=== PATIENT | female | born 1960 | race Caucasian/White ===

== ENCOUNTER → 2018-05-12 | Outpatient (CLI) | payer BC ==
--- NOTE | 2018-05-13 09:53 | MM ---
Reason for exam: screening (asymptomatic). Last mammogram was performed 2 years and 7 months ago. History: Patient is postmenopausal. Took hormonal contraceptives for 15 years beginning at age 19. Physical Findings: A clinical breast exam by your physician is recommended on an annual basis and results should be correlated with mammographic findings. MG 3D Screening Mammo W/Cad Bilateral CC and MLO view(s) were taken. Prior study comparison: October 07, 2015, bilateral MG screening mammo w CAD. October 27, 2012, bilateral digital screening mammo w/CAD. The breast tissue is extremely dense which could obscure a lesion on mammography. Benign appearing bilateral calcifications. No significant changes when compared with prior studies. ASSESSMENT: Benign, BI-RAD 2 RECOMMENDATION: Routine screening mammogram of both breasts in 1 year.
== END | disposition home or self-care (01) ==
LOC: RADMAMWWP 10:45
PROVIDERS: ATTEND Obstetrics & Gynecology
DX: Z12.31 Encounter for screening mammogram for malignant neoplasm of breast (principal)
CPT/HCPCS: 77063; 77067

== ENCOUNTER → 2019-10-01 | Outpatient (CLI) | payer BC ==
--- NOTE | 2019-10-02 13:55 | MM ---
Reason for exam: screening (asymptomatic). Last mammogram was performed 1 year and 5 months ago. History: Patient is postmenopausal. Took hormonal contraceptives for 15 years beginning at age 19. Physical Findings: A clinical breast exam by your physician is recommended on an annual basis and results should be correlated with mammographic findings. MG 3D Screening Mammo W/Cad Bilateral CC and MLO view(s) were taken. Prior study comparison: May 12, 2018, bilateral MG 3d screening mammo w/cad. October 07, 2015, bilateral MG screening mammo w CAD. The breast tissue is extremely dense which could obscure a lesion on mammography. No significant changes when compared with prior studies. ASSESSMENT: Benign, BI-RAD 2 RECOMMENDATION: Routine screening mammogram of both breasts in 1 year.
== END | disposition home or self-care (01) ==
LOC: RADMAMWWP 15:26
PROVIDERS: ATTEND Physician Assistant
DX: Z12.31 Encounter for screening mammogram for malignant neoplasm of breast (principal)
CPT/HCPCS: 77063; 77067

== ENCOUNTER → 2019-10-01 | Outpatient (CLI) | payer BC ==
--- NOTE | 2019-10-01 16:06 | US ---
EXAMINATION TYPE: US axilla LT DATE OF EXAM: 10/01/2019 COMPARISON: NONE CLINICAL HISTORY: 58-year-old female R22.30 Localized swelling, mass and lump, unspec. TECHNIQUE: Multiple sonographic images of the left axilla including the upper third posterior arm cor responding to the palpable site. FINDINGS: Left posterior humerus upper 1/3 area palpable. Echogenic focal round lesion non vascular measuring 0 .6 x 0.5 x 0.7 cm IMPRESSION: Targeted scanning to the palpable site along the posterior upper left arm shows a 7 mm round echogeni c lesion in the subcutaneous adipose. Probable small hematoma or area of fat necrosis. Three-month fo llow-up recommended to reassess.
== END | disposition home or self-care (01) ==
LOC: RADUSWWP 15:16
PROVIDERS: ATTEND Physician Assistant
DX: L98.8 Other specified disorders of the skin and subcutaneous tissue (principal)

== ENCOUNTER → 2020-01-21 | Outpatient (CLI) | payer BC ==
--- NOTE | 2020-01-22 05:18 | US ---
EXAMINATION TYPE: US axilla LT DATE OF EXAM: 01/21/2020 COMPARISON: 10/01/2019 CLINICAL HISTORY: 59-year-old female R22.30 Lump in Armpit. Financial Agent notes: F/U lump left posterio r upper arm, pt states palpable still present and feels unchanged from previous Technique: Targeted ultrasound examination at the patient's palpable site along the upper posterior l eft arm near the axilla. FINDINGS: Area of palpable left upper posterior arm visualized and appears unchanged from previous- focal ech ogenic round area just deep to the skin surface within the subcutaneous adipose layer, 8mm in size IMPRESSION: Stable 8 mm echogenic lesion just deep to the skin surface within the subcutaneous adipos e layer corresponding to the palpable site. Possible area of fat necrosis or small subcutaneous lipom a. If any growth is noted, the area can be rescanned. If symptomatic, excision could be considered.
== END | disposition home or self-care (01) ==
LOC: RADUSWWP 15:21
PROVIDERS: ATTEND Nurse Practitioner Family
DX: R22.30 Localized swelling, mass and lump, unspecified upper limb (principal)

== ENCOUNTER → 2022-09-21 | Outpatient (CLI) | payer BC ==
--- NOTE | 2022-09-21 13:50 | CA ---
Exercise Stress Test Report Name: Gely Da Silva Exam Date: 09/21/2022 11:05 Exam Location: [place] [facility] Ht (in): 65 Wt (lb): 210 BSA: 2.02 Ordering Phys: LICO Referring Phys: BARFIELD Technologist: Jeffry Rodney Age: 61 Gender: F : 1960 Procedure CPT: Indications: ICD-10 Codes: Patient History: PALPITATIONS, HTN, FAMILY HX OF HEART DISEASE, ABN ECG Medications: LISINOPRIL,,,,,, ELOQUIS,,,,,, LEXAPRO,,,,,, VIT D,,,,,, VIT B COMPLEX,,,,, Meds past 24 hrs: Pretest Chest Pain: STRESS TEST David Protocol Exercise Duration (min:sec): 06:[address] Depressions (mm): Angina Score: Guzmán Score: Resting HR (bpm): 82 Peak HR (bpm): 141 Resting BP (mmHg): 141 / 94 Peak BP (mmHg): 198 / 99 MPHR: 158 Target HR: 134 % MPHR: 89 METS: 8.0 Total Dose: Peak Dose: Atropine: Double Product: 32897 BP Response: Stress Termination: TARGET HR REACHED/MAX EXERTION Stress Symptoms: Stress Summary: ECG ANALYSIS Resting ECG: Stress ECG: CONCLUSIONS Patient underwent exercise stress EKG with a David protocol treadmill stress test. Patient exercised into Stage [] for a total of 2 reaching a total of 6 minutes and 30 seconds. Patient's maximum heart rate was 141 which represented 89 % age- predicted maximum heart rate. Stress EKG findings: At baseline patient's EKG showed normal sinus rhythm, normal axis, no significant ST or T wave abnormalities. At peak exercise, EKG showed nonspecific and nondiagnostic 0.[address] depressions in the inferior and lateral leads. Conclusions: 1. Normal EKG response to exercise without evidence of inducible ischemia. 2. Fair exercise capacity. Dr. Lance Pompa DO (Electronically Signed) Final Date: 21 September 2022 12:26
== END | disposition home or self-care (01) ==
LOC: RADNMMAIN 10:42
PROVIDERS: ATTEND Family Medicine
DX: R94.31 Abnormal electrocardiogram [ECG] [EKG] (principal); I10 Essential (primary) hypertension
CPT/HCPCS: 93017

== ENCOUNTER → 2024-10-15 | Outpatient (CLI) | payer BC ==
--- NOTE | 2024-10-18 22:56 | BD ---
EXAMINATION TYPE: Axial Bone Density DATE OF EXAM: 10/15/2024 CLINICAL HISTORY: 63 years old Female. ICD-10 CODE: Z78.0 [place]MP [place] , Additional History: Height: 64.5 Weight: 220.3 FRAX RISK QUESTIONS: Alcohol (3 or more units per day): no Family History (Parent hip fracture): no Glucocorticoids (More than 3mos): no (Ex: prednisone, prednisolone, methylprednisolone, dexamethasone, and hydrocortisone). History of Fracture in Adulthood: yes Secondary Osteoporosis: 1. Type 1 Diabetes: no 2. Hyperthyroidism: no 3. Menopause before 45: no 4. Malnutrition: no 5. Chronic liver disease: no Rheumatoid Arthritis: no Current Tobacco Use: no RISK FACTORS HISTORY OF: Surgery to Spine/Hip(right/left)/Wrist (right/left): no EXAM MEASUREMENTS: Bone mineral densitometry was performed using the [employer]. Bone mineral density as measured about the Lumbar spine is: ----- L1-L4(G/cm2): 1.202 T Score Values are as follows: ----- L1: 0.3 ----- L2: 0.8 ----- L3: -0.2 ----- L4: -0.2 ----- L1-L4: 0.2 Z Score Values are as follows: ----- L1: 0.7 ----- L2: 1.2 ----- L3: 0.2 ----- L4: 0.2 ----- L1-L4: 0.6 Bone mineral density : baseline Bone mineral density about the R hip (g/cm2): 0.944 Bone mineral density about the L hip (g/cm2): 1.055 T Score values are as follows: -----R Neck: -0.2 -----L Neck: 0.1 -----R Total: -0.1 -----L Total: 0.4 Z Score values are as follows: -----R Neck: 0.5 -----L Neck: 0.8 -----R Total: 0.7 -----L Total: 0.2 Bone mineral density : baseline FRAX%s: The graph provided illustrates a 12.6% chance for a major osteoporotic fx and a 0.2% chance f or the hips probability for fx in 10 years time. IMPRESSION: Normal (Values between +1 and -1 indicate normal bone mass). Consider repeating this study in 5 year s or sooner if there is some new clinical indication. NOTE: T-SCORE=SD OF THE YOUNG ADULT MEAN. [facility], , 10/18/2024 10:54 PM
--- NOTE | 2024-10-19 14:36 | MM ---
Reason for Exam: Screening (asymptomatic). Last mammogram was performed 2 year(s) and 3 month(s) ago. Patient History: Menarche at age 9. First Full-Term at age 19. Postmenopausal. Hormonal Contraceptives for 15 years from age 19 until age 34. Risk Values: Dayanara 5 year model risk: 1.6%. NCI Lifetime model risk: 6.4%. Prior Study Comparison: 05/12/2018 Bilateral Screening Mammogram, [facility]. 10/01/2019 Bilateral Screening Mammogram, [facility]. 07/20/2022 Bilateral MG 3D screening mammo w/cad, [facility]. Tissue Density: The breasts are heterogeneously dense, which may obscure small masses. Findings: Analyzed By CAD. Right breast: There is no suspicious group of microcalcifications or new suspicious mass. Benign-appearing calcifications right breast. Left breast: There is no suspicious group of microcalcifications or new suspicious mass. Benign-appearing calcifications left breast. Overall Assessment: Benign, BI-RAD 2 Management: Screening Mammogram of both breasts in [address] [facility] will attempt to contact patient to return for supplemental views and ultrasound if indicated. Patient should continue monthly self-breast exams. A clinical breast exam by your physician is recommended on an annual basis. This exam should not preclude additional follow-up of suspicious palpable abnormalities. Note on Dayanara scores and lifetime risk: 1. A Dayanara score greater than 3% is considered moderate risk. If this is the case, consider specialist referral to assess eligibility for a risk reducing agent. 2. If overall lifetime risk for the development of breast cancer is 20% or higher, the patient may qualify for future screening with alternating mammogram and breast MRI. [facility], , 10/19/2024 2:16 PM. Electronically signed and approved by: Roshan Burnett DO
== END | disposition home or self-care (01) ==
LOC: RADMAMWWP 10:39
PROVIDERS: ATTEND Family Medicine
DX: Z12.31 Encounter for screening mammogram for malignant neoplasm of breast (principal); Z78.0 Asymptomatic menopausal state; R92.333 Mammographic heterogeneous density, bilateral breasts
CPT/HCPCS: 77063; 77067; 77080